=== PATIENT | male | born 1930 | race Caucasian/White ===

== ENCOUNTER 2016-09-02 18:47 | Emergency (ER) | payer OTHER ==
[~2016-09-02] VITALS: Ht 182.9 cm; Wt 82.7 kg
[~2016-09-02 18:47] MED LIST: ACTOS15 MG PO; ACTOS45 MG PO; ADULT LOW DOSE81 M1 PO; ALLOPURINOL300 MG PO; ASPIR-LOW81 MG PO; ASPIRIN EC325 MG PO; ASPIRIN81 M1 PO; AUGMENTIN875 MG PO; Aspirin E.C. PO; Ceftin PO; DEBROX15 ML LEFT EAR; EXCEDRIN MIGRAI1 TAB PO; FLOMAX0.4 M1 PO; FLOMAX0.4 MG PO; Flomax PO; HUMULIN N100 UNITS/ SC; HUMULIN N300 UNIT/3 SC; HUMULIN NP100 UNIT/1 PO; HUMULIN NP100 UNIT/1 SC; HYDROCODON-ACE1 EAC7 PO; IMDUR30 MG PO; IMDUR60 MG PO; INDERAL60 MG PO; Imdur PO; K-TAB10 MEQ PO; LASIX40 MG PO; LIPITOR20 MG PO; LISINOPRIL20 MG PO; LISINOPRIL40 MG PO; LOZOL2.5 MG PO; Lasix PO; Lipitor PO; NEXIUM40 MG PO; NITROSTAT0.4 MG PO; NOVOLIN N100 UNITS/ SC; NYSTATIN15 GM TP; ONGLYZA5 MG PO; PLAVIX75 MG PO; POTASSIUM CHLO10 ME4 PO; PRANDIN1 MG PO; PRANDIN2 MG PO; PREDNISONE20 MG PO; PRINIVIL20 MG PO; PROPRANOLOL HCL60 M1 PO; PROPRANOLOL HCL60 MG PO; Propranolol HCl PO; SERTRALINE HCL100 MG PO; SKELAXIN800 MG PO; SKIN PROTECTAN113 GM TP; TEGRETOL-XR,CA100 MG PO; ULTRAM50 MG PO; Vicodin,Lortab 5/500 PO; ZESTRIL,PRINIVI40 M1 PO; ZESTRIL,PRINIVI40 MG PO; ZESTRIL40 M1 PO; ZOLOFT100 MG PO; ZOLOFT50 M1 GT; ZOLOFT50 M1 PO; ZOLOFT50 MG PO; ZYLOPRIM150 MG PO; ZYLOPRIM300 MG PO; Zestril PO; Zestril,Prinivil PO; Zoloft PO; Zyloprim PO; predniSONE PO
[2016-09-02 22:06] VITALS: BP 174/86
== END 2016-09-02 22:07 | disposition home or self-care (01) ==
LOC: EME 18:47
DX: R06.00 Dyspnea, unspecified (principal); R55 Syncope and collapse; F03.90 Unspecified dementia, unspecified severity, without behavioral disturbance, psychotic disturbance, mood disturbance, and anxiety; I11.0 Hypertensive heart disease with heart failure; I50.9 Heart failure, unspecified; E11.9 Type 2 diabetes mellitus without complications; E78.5 Hyperlipidemia, unspecified; K21.9 Gastro-esophageal reflux disease without esophagitis; I25.2 Old myocardial infarction; Z90.49 Acquired absence of other specified parts of digestive tract; Z87.442 Personal history of urinary calculi; Z87.891 Personal history of nicotine dependence; Z79.4 Long term (current) use of insulin
CPT/HCPCS: 71010; 99281; 99283